=== PATIENT | female | born 1990 | race Caucasian/White ===

== ENCOUNTER 2021-05-25 10:45 | Emergency (ER) | payer MEDICAID ==
[~2021-05-25] VITALS: Ht 165.1 cm; Wt 92.1 kg
[~2021-05-25 10:45] MED LIST: SERT50TA; [UNRECOGNIZED DRUG - OTHER]
[2021-05-25] MEDS ORDERED: ASPirin 81 mg TAB PO ONE (11:00)
[2021-05-25 11:59] LABS: Basophils # (auto) 0 10 ^3/uL (0-0.2); Basophils % (auto) 0.3 % (0.0-2.0); Eosinophils # (auto) 0.3 10 ^3/uL (0-0.8); Eosinophils % (auto) 3.8 % (0.0-7.0); Hemoglobin 12.8 g/dL (12.2-16.2); Lymphocytes # (auto) 1.3 10 ^3/uL (0.4-5.4); Lymphocytes % (auto) 16.9 % (10.0-50.0); Mean Corpuscular Hemoglobin 30.8 pg (28.0-32.0); Mean Corpuscular Hgb Conc. 34.5 g/dL (32.0-36.0); Mean Corpuscular Volume 89.2 fL (80.0-100.0); Monocytes # (auto) 0.5 10 ^3/uL (0-1.3); Monocytes % (auto) 6.4 % (0.0-12.0); Neutrophils # (auto) 5.5 10 ^3/uL (1.6-8.6); Neutrophils % (auto) 72.6 % (37.0-80.0); Nucleated Red Blood Cells % 0.1 %; Red Blood Cells 4.15 10^6/uL (4.0-5.20); Red Cell Distribution Width 13.6 % (11.8-14.3); White Blood Cell 7.6 10^3/uL (4.4-10.8)
[2021-05-25 12:16] LABS: Albumin 3.4 g/dL (3.4-5.0); Calcium 8.7 mg/dL (8.5-10.1); Potassium 3.9 mmol/L (3.5-5.1)
[2021-05-25 12:19] LABS: BUN/Creatinine Ratio 11.3
[2021-05-25 12:23] LABS: Bilirubin, Total 0.3 mg/dL (0.2-1.0); Total Protein 6.9 g/dL (6.4-8.2)
[2021-05-25 12:29] LABS: Urine Bacteria MANY /hpf (None Seen); Urine Blood Negative /uL (Negative); Urine WBC 1 /hpf (0 - 5)
[2021-05-25] MEDS ORDERED: LEVO-28 PO (13:21)
[2021-05-25 13:40] VITALS: BP 131/78
== END 2021-05-25 13:38 | disposition home or self-care (01) ==
LOC: ER 10:45
DX: J06.9 Acute upper respiratory infection, unspecified (principal); R07.89 Other chest pain; Z79.899 Other long term (current) drug therapy
CPT/HCPCS: 36415; 71045; 80053; 81001; 84484; 85025; 93005

== ENCOUNTER 2022-10-29 10:25 | Inpatient (IN) | payer MEDICAID ==
[~2022-10-29] VITALS: Ht 165.1 cm; Wt 94.3 kg
[~2022-10-29 10:25] MED LIST changes: +LEVO500T91 PO
[2022-10-29 10:59] LABS: Urine Bacteria NONE SEEN /hpf (None Seen); Urine Blood Negative /uL (Negative); Urine Clarity Clear (Clear); Urine Color Colorless (Yellow); Urine Protein, UAD Negative (Negative); Urine Specific Gravity 1.012 (1.001-1.035); Urine Urobilinogen Normal (Negative); Urine WBC 7 /hpf (0 - 5); Urine pH 6.5 (5.0-8.0)
[2022-10-29 11:15] LABS: Basophils # (auto) 0 10 ^3/uL (0-0.2); Basophils % (auto) 0.5 % (0.0-2.0); Eosinophils # (auto) 0.3 10 ^3/uL (0-0.8); Eosinophils % (auto) 3.3 % (0.0-7.0); Hematocrit 40.9 % (36.0-46.0); Hemoglobin 13.5 g/dL (12.2-16.2); Lymphocytes # (auto) 1.6 10 ^3/uL (0.4-5.4); Lymphocytes % (auto) 18.5 % (10.0-50.0); Mean Corpuscular Hemoglobin 30.1 pg (28.0-32.0); Mean Corpuscular Hgb Conc. 32.9 g/dL (32.0-36.0); Mean Corpuscular Volume 91.6 fL (80.0-100.0); Monocytes # (auto) 0.5 10 ^3/uL (0-1.3); Monocytes % (auto) 6.1 % (0.0-12.0); Neutrophils # (auto) 6.3 10 ^3/uL (1.6-8.6); Neutrophils % (auto) 71.6 % (37.0-80.0); Red Blood Cells 4.47 10^6/uL (4.0-5.20); White Blood Cell 8.8 10^3/uL (4.4-10.8)
[2022-10-29] MEDS ORDERED: KETOROLAC TROMETH 60MG/2ML VIAL IM ONE (11:15)
[2022-10-29 11:40] LABS: Alanine Aminotransferase 16 U/L (7-40); Albumin 4.6 g/dL (3.2-4.8); Alkaline Phosphatase 29 U/L (46-116); Aspartate Aminotransferase 9 U/L (13-40); BUN/Creatinine Ratio 14.5 (10.0-20.0); Blood Urea Nitrogen 12 mg/dL (9-23); Calcium 9.6 mg/dL (8.5-10.1); Chloride 107 mmol/L (98-107); Glucose 97 mg/dL (74-106); Lipase 49 U/L (12-53); Potassium 4.5 mmol/L (3.5-5.1); Sodium 138 mmol/L (136-145)
[2022-10-29 11:41] LABS: Bilirubin, Total 0.3 mg/dL (0.2-1.0); Total Protein 7.3 g/dL (5.7-8.2)
[2022-10-29 14:01] LABS: Urine Bacteria NONE SEEN /hpf (None Seen); Urine Blood Negative /uL (Negative); Urine Clarity Clear (Clear); Urine Protein, UAD Negative (Negative); Urine Specific Gravity 1.016 (1.001-1.035); Urine Urobilinogen Normal (Negative); Urine WBC 24 /hpf (0 - 5)
[2022-10-29 14:06] LABS: Urine Color STRAW (Yellow)
[2022-10-29] MEDS ORDERED: CEFTRIAXONE SODIUM 2 GM in D5W 5% 100 ML IV ONE (14:30)
[2022-10-29 14:45] LABS: Urine Bacteria FEW /hpf (None Seen); Urine Blood Negative /uL (Negative); Urine Clarity Clear (Clear); Urine Hyaline Cast FEW /lpf (0 - 2); Urine Mucus FEW (None Seen); Urine Protein, UAD Negative (Negative); Urine Specific Gravity 1.016 (1.001-1.035); Urine Urobilinogen Normal (Negative); Urine WBC 17 /hpf (0 - 5)
[2022-10-29 14:46] LABS: Urine Color STRAW (Yellow)
[2022-10-29] MEDS ORDERED: amLODIPine BESYLATE 5 MG TAB PO ONE (15:00)
[2022-10-29] MEDS: SODIUM CHLORIDE 0.9% 1,000 ML IV SCH ×2 (15:00→21:36)
[2022-10-29] MEDS ORDERED: ACETAMINOPHEN 325 MG TAB PO PRN (15:00)
[2022-10-29] MEDS ORDERED: TAMSULOSIN HYDROCHLORIDE 0.4 MG CAP PO ONE (15:00)
[2022-10-29] MEDS ORDERED: SODIUM CHLORIDE 0.9% 1,000 ML IV ONE (15:00)
[2022-10-29] MEDS ORDERED: KETOROLAC TROMETH 30 MG/ML 1ML VIAL IV PRN (15:00)
[2022-10-29 15:52] LABS: Triglycerides 72 mg/dL (< 150)
[2022-10-29 15:53] LABS: LDL Cholesterol 91 mg/dL (< 100)
[2022-10-29 15:54] LABS: Cholesterol 170 mg/dL (< 200); HDL Cholesterol 66 mg/dL (40-59)
[2022-10-29] MEDS: HYDROcodone-ACET 5/325MG TAB PO PRN ×2 (17:27→21:59)
[2022-10-29 20:05] VITALS: PULSE 67; RESP 16; O2SAT 99
[2022-10-29] MEDS: TAMSULOSIN HYDROCHLORIDE 0.4 MG CAP PO SCH (21:36)
[2022-10-30] VITALS (8 sets, daily range): BP systolic 102–140; BP diastolic 46–89; PULSE 52–89; RESP 15–19; TEMP 97.6–98.5; O2SAT 92–100
[2022-10-30] MEDS: SODIUM CHLORIDE 0.9% 1,000 ML IV SCH ×3 (00:41→17:23)
[2022-10-30 06:01] LABS: Alanine Aminotransferase 11 U/L (7-40); Albumin 3.6 g/dL (3.2-4.8); Alkaline Phosphatase 23 U/L (46-116); Anion Gap 4.9 (5-15); Aspartate Aminotransferase < 8 U/L (13-40); BUN/Creatinine Ratio 10.8 (10.0-20.0); Bilirubin, Total 0.4 mg/dL (0.2-1.0); Blood Urea Nitrogen 10 mg/dL (9-23); Calcium 8.3 mg/dL (8.7-10.4); Carbon Dioxide 25.1 mmol/L (20-30); Chloride 110 mmol/L (98-107); Glucose 93 mg/dL (74-106); Potassium 4.2 mmol/L (3.5-5.1); Sodium 140 mmol/L (136-145); Total Protein 5.7 g/dL (5.7-8.2)
[2022-10-30 06:05] LABS: Basophils # (auto) 0 10 ^3/uL (0-0.2); Basophils % (auto) 0.5 % (0.0-2.0); Eosinophils # (auto) 0.3 10 ^3/uL (0-0.8); Eosinophils % (auto) 3.8 % (0.0-7.0); Hematocrit 37.3 % (36.0-46.0); Hemoglobin 12.2 g/dL (12.2-16.2); Lymphocytes # (auto) 1.9 10 ^3/uL (0.4-5.4); Lymphocytes % (auto) 24.6 % (10.0-50.0); Mean Corpuscular Hemoglobin 30.3 pg (28.0-32.0); Mean Corpuscular Hgb Conc. 32.7 g/dL (32.0-36.0); Mean Corpuscular Volume 92.4 fL (80.0-100.0); Monocytes # (auto) 0.5 10 ^3/uL (0-1.3); Monocytes % (auto) 6.5 % (0.0-12.0); Neutrophils # (auto) 5.1 10 ^3/uL (1.6-8.6); Neutrophils % (auto) 64.6 % (37.0-80.0); Nucleated Red Blood Cells % 0.1 %; Red Blood Cells 4.03 10^6/uL (4.0-5.20); White Blood Cell 7.9 10^3/uL (4.4-10.8)
[2022-10-30] MEDS: cefTRIAXone 1GM/50ML D5W 50 ML IV SCH (08:59)
[2022-10-30] MEDS ORDERED: cefTRIAXone 1GM/50ML D5W 50 ML IV SCH (09:00)
[2022-10-30] MEDS: amLODIPine BESYLATE 5 MG TAB PO SCH (09:00)
[2022-10-30] MEDS: KETOROLAC TROMETH 30 MG/ML 1ML VIAL IV PRN ×2 (12:47→22:38)
[2022-10-30] MEDS: TAMSULOSIN HYDROCHLORIDE 0.4 MG CAP PO SCH (17:22)
[2022-10-30] MEDS ORDERED: DOCUSATE SOD 100 MG CAP PO PRN (18:00)
[2022-10-31] VITALS (7 sets, daily range): BP systolic 117–146; BP diastolic 73–87; PULSE 59–82; RESP 16–20; TEMP 97–98.1; O2SAT 96–99
[2022-10-31] MEDS: SODIUM CHLORIDE 0.9% 1,000 ML IV SCH ×3 (02:39→23:37)
[2022-10-31 09:25] LABS: Hepatitis B Surface Antigen Negative (Negative)
[2022-10-31 09:46] LABS: Hepatitis C Antibody Negative (Negative)
[2022-10-31] MEDS: cefTRIAXone 1GM/50ML D5W 50 ML IV SCH (09:55)
[2022-10-31] MEDS: amLODIPine BESYLATE 5 MG TAB PO SCH (09:56)
[2022-10-31] MEDS ORDERED: MANNITOL FTV 25% 12.5 GM/50 ML 50 ML IV ONE (11:00)
[2022-10-31] MEDS ORDERED: HYDROcodone-ACET 5/325MG TAB PO PRN (11:00)
[2022-10-31] MEDS: TAMSULOSIN HYDROCHLORIDE 0.4 MG CAP PO SCH (18:04)
[2022-11-01 05:01] VITALS: BP 121/65; PULSE 66; RESP 18; TEMP 98.4; O2SAT 97
[2022-11-01 06:58] LABS: Chloride 110 mmol/L (98-107)
[2022-11-01 06:59] LABS: Anion Gap 5.9 (5-15); Carbon Dioxide 24.1 mmol/L (20-30); Potassium 4.3 mmol/L (3.5-5.1); Sodium 140 mmol/L (136-145)
[2022-11-01 07:00] LABS: Calcium 8.6 mg/dL (8.5-10.1)
[2022-11-01 07:03] LABS: Basophils # (auto) 0 10 ^3/uL (0-0.2); Basophils % (auto) 0.5 % (0.0-2.0); Eosinophils # (auto) 0.3 10 ^3/uL (0-0.8); Eosinophils % (auto) 3.3 % (0.0-7.0); Hematocrit 34.9 % (36.0-46.0); Hemoglobin 11.8 g/dL (12.2-16.2); Lymphocytes # (auto) 1.5 10 ^3/uL (0.4-5.4); Lymphocytes % (auto) 18.9 % (10.0-50.0); Mean Corpuscular Hemoglobin 30.9 pg (28.0-32.0); Mean Corpuscular Hgb Conc. 33.8 g/dL (32.0-36.0); Mean Corpuscular Volume 91.3 fL (80.0-100.0); Monocytes # (auto) 0.5 10 ^3/uL (0-1.3); Neutrophils # (auto) 5.8 10 ^3/uL (1.6-8.6); Neutrophils % (auto) 71.3 % (37.0-80.0); Nucleated Red Blood Cells % 0.1 %; Red Blood Cells 3.83 10^6/uL (4.0-5.20); Red Cell Distribution Width 13.8 % (11.8-14.3); White Blood Cell 8.1 10^3/uL (4.4-10.8)
[2022-11-01 07:05] LABS: BUN/Creatinine Ratio 10.3 (10.0-20.0); Blood Urea Nitrogen 8 mg/dL (9-23); Glucose 95 mg/dL (74-106)
[2022-11-01 08:00] VITALS: PULSE 78; RESP 18; O2SAT 96
[2022-11-01 09:00] VITALS: BP 127/77; PULSE 78; RESP 18; TEMP 98.1; O2SAT 99
[2022-11-01] MEDS: cefTRIAXone 1GM/50ML D5W 50 ML IV SCH (09:48)
[2022-11-01] MEDS: SODIUM CHLORIDE 0.9% 1,000 ML IV SCH (09:48)
[2022-11-01] MEDS ORDERED: TRAM50TA2 PO (10:08)
[2022-11-01] MEDS ORDERED: TAMS-35 PO (10:08)
[2022-11-01] MEDS: amLODIPine BESYLATE 5 MG TAB PO SCH (10:10)
[2022-11-01 11:15] VITALS: BP 127/77; PULSE 78; RESP 18; TEMP 98.1; O2SAT 99
== END 2022-11-01 12:30 | disposition home or self-care (01) | DRG 463 ==
LOC: ER 10:25 → OVERFLOW 14:55 → CENTRAL 23:02
PROVIDERS: ADMIT Nurse Practitioner Family; ATTEND Internal Medicine
DX: N13.6 Pyonephrosis (principal); I12.0 Hypertensive chronic kidney disease with stage 5 chronic kidney disease or end stage renal disease; E11.22 Type 2 diabetes mellitus with diabetic chronic kidney disease; E83.59 Other disorders of calcium metabolism; N18.6 End stage renal disease; E66.01 Morbid (severe) obesity due to excess calories; N39.3 Stress incontinence (female) (male); F32.A Depression, unspecified; N29 Other disorders of kidney and ureter in diseases classified elsewhere; F41.9 Anxiety disorder, unspecified; J44.9 Chronic obstructive pulmonary disease, unspecified; Z68.34 Body mass index [BMI] 34.0-34.9, adult; Z87.440 Personal history of urinary (tract) infections; Z83.2 Family history of diseases of the blood and blood-forming organs and certain disorders involving the immune mechanism; Z83.3 Family history of diabetes mellitus
CPT/HCPCS: 36415; 74176; 80048; 80053; 80061; 81001; 81025; 83690; 84443; 85025; 86803; 87086; 87088; 87186; 87340; 93005; 96365; 96372; 96375; G0378; J0696; J1885; J7060